=== PATIENT | female | born 1975 | race Asian ===

== ENCOUNTER 2019-07-09 16:56 | Emergency (ER) | payer BC ==
[~2019-07-09] VITALS: Ht 152.4 cm; Wt 66.2 kg
[2019-07-09 17:18] VITALS: Ht 152.4 cm; Wt 66.2 kg
[2019-07-09 18:19] LABS: BASOPHIL % 0.9 % (0-2); PLATELET COUNT 209 x10^3mcL (130-400); RED CELL DISTRIBUTION WIDTH 13.4 % (11.5-14.5)
[2019-07-09 18:33] LABS: CALCIUM 8.8 mg/dL (8.5-10.1); CARBON DIOXIDE 25.6 mmol/L (21-32); CHLORIDE SERUM 106 mmol/L (98-107); CREATININE SERUM 0.9 mg/dL (0.6-1.0); GFR1 > 60 mL/min; GLUCOSE SERUM 125 mg/dL (74-106); POTASSIUM SERUM 4.1 mmol/L (3.5-5.1); SODIUM SERUM 142 mmol/L (136-145)
[2019-07-09 18:37] LABS: ALBUMIN 3.7 g/dL (3.4-5.0); ALKALINE PHOSPHATASE 70 U/L (46-116); ALT/SGPT 23 U/L (14-59); AST/SGOT 11 U/L (15-37); BILIRUBIN TOTAL 0.3 mg/dL (0.20-1.00); TOTAL PROTEIN, SERUM 6.9 g/dL (6.4-8.2)
[2019-07-09 19:02] LABS: UA SPECIFIC GRAVITY 1.025 (1.005-1.035); microscopic required? YES; urine erythrocyte 3+ (NEGATIVE)
[2019-07-09 20:58] LABS: AMPHETAMINE QUAL UR NONE DETECTED (See below)
[2019-07-09 21:29] VITALS: BP 128/82
== END 2019-07-09 21:29 | disposition home or self-care (01) ==
LOC: ED 16:56
PROVIDERS: Emergency Medicine
DX: S61.512A Laceration without foreign body of left wrist, initial encounter (principal); Z88.6 Allergy status to analgesic agent; X78.8XXA Intentional self-harm by other sharp object, initial encounter; Y93.89 Activity, other specified; Y92.89 Other specified places as the place of occurrence of the external cause; Y99.8 Other external cause status
CPT/HCPCS: 36415; 90715; G0480

== ENCOUNTER 2019-07-11 11:23 | Emergency (ER) | payer BC ==
[~2019-07-11] VITALS: Ht 154.9 cm; Wt 66.2 kg
[2019-07-11 11:32] VITALS: BP 132/91; Ht 154.9 cm; Wt 66.2 kg
== END 2019-07-11 12:55 | disposition home or self-care (01) ==
LOC: ED 11:23
DX: S61.512D Laceration without foreign body of left wrist, subsequent encounter (principal); Z88.6 Allergy status to analgesic agent; X58.XXXD Exposure to other specified factors, subsequent encounter

== ENCOUNTER 2019-07-18 10:54 | Emergency (ER) | payer BC ==
[~2019-07-18] VITALS: Ht 154.9 cm; Wt 66.2 kg
[2019-07-18 11:08] VITALS: BP 119/69; Ht 154.9 cm; Wt 66.2 kg
== END 2019-07-18 13:19 | disposition home or self-care (01) ==
LOC: ED 10:54
DX: S51.812D Laceration without foreign body of left forearm, subsequent encounter (principal); Z88.6 Allergy status to analgesic agent; X58.XXXD Exposure to other specified factors, subsequent encounter